=== PATIENT | female | born 1985 | race African-American/Black ===

== ENCOUNTER 2016-11-30 07:34 | Emergency (ER) | payer OTHER ==
[2016-11-30 07:41] VITALS: BP 117/76; PULSE 82; TEMP 98.2; BMI 29.2
--- NOTE | 2016-11-30 08:45 | PDOC ---
History of Present Illness - General Chief Complaint: Cold Symptoms Stated Complaint: DIFFICULTY BREATHING Time Seen by Provider: 11/30/16 08:04 - History of Present Illness Initial Comments: 11/30/16 08:45 CHIEF COMPLAINT: sore throat HISTORY OF PRESENT ILLNESS: 31 yo F with recurrent strep infections and asthma presents to [facility] today with sore throat x 2-3 days with low grade fever yesterday. 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 No recent travel or sick contacts. PAST MEDICAL HISTORY: Denies past medical history FAMILY HISTORY: Denies SOCIAL HISTORY: Occupation: ENT nurse. Denies tobacco, alcohol, illicit drug use. SURGICAL HISTORY: Denies ALLERGIES: No known drug allergies REVIEW OF SYSTEMS General/Constitutional: "Low grade fever". Denies weakness, weight change. HEENT: Sore throat. Denies change in vision. Denies ear pain or discharge. Denies sore throat. Cardiovascular: Denies chest pain or shortness of breath. Respiratory: Denies cough, wheezing, or hemoptysis. PHYSICAL EXAM General Appearance: Well-appearing, appropriately dressed. No apparent distress , no intoxication. HEENT: Swollen uvula and L tonsil, exudate to L tonsil. EOMI, PERRLA. No conjunctival pallor. No photophobia, scleral icterus. Respiratory/Chest: Lungs CTAB. Cardiovascular: RRR. S1, S2. Integumentary: Appropriate color, dry, warm. No cyanosis, erythema, jaundice or rash Past History - Past Medical History Allergies/Adverse Reactions: Allergies Allergy/AdvReac Type Severity Reaction Status Date / Time No Known Allergies Allergy Verified 11/30/16 07:37 Home Medications: Ambulatory Orders NK [No Known Home Medication] 11/30/16 Asthma: Yes Diabetes: No GI Disorders: No HTN: No Hypercholesterolemia: No Psychiatric Problems: Yes (anxiety) Suicide Attempt (Hx): No - Surgical History Abdominal Surgery: Yes - Reproductive History Cervical CA: No Dysfunctional Uterine Bleeding: No Ectopic : No Endometrial CA: No Polycystic Ovaries: No Tubal Ligation: No - Immunization History Td Vaccination: Yes Immunization Up to Date: Yes - Psycho/Social/Smoking Cessation Hx Anxiety: Yes Suicidal Ideation: No Smoking Status: No Smoking History: Never smoked Years of Tobacco Use: 0 Have you smoked in the past 12 months: No Number of Cigarettes Smoked Daily: 0 Cigars Per Day: 0 Information on smoking cessation initiated: No Hx Alcohol Use: No Drug/Substance Use Hx: No Substance Use Type: None Hx Substance Use Treatment: No *Physical Exam - Vital Signs Last Vital Signs Temp Pulse Resp BP Pulse Ox 98.2 F 82 18 117/76 100 11/30/16 07:38 11/30/16 07:38 11/30/16 07:38 11/30/16 07:38 11/30/16 07:38 Medical Decision Making - Medical Decision Making 11/30/16 08:52 31 yo F presents to [facility] with sore throat s/p recent mono infection. -rapid strep Strep A negative. Given recent infection with mononucleosis, will not to give penicillin antibiotics. Will give Decadron for swelling of the throat. Advised patient to follow up with ENT for further evaluation of recurrent strep infections and throat swelling. Advised patient of signs and symptoms for return to ER. Patient verbalized understanding agrees to plan. 11/30/16 09:04 *DC/Admit/Observation/Transfer Diagnosis at time of Disposition: Pharyngitis Qualifiers: Pharyngitis/tonsillitis etiology: unspecified etiology Qualified Code(s): J02.9 - Acute pharyngitis, unspecified - Discharge Dispostion Disposition: HOME Condition at time of disposition: Stable Admit: No - Referrals Referrals: Nikolai Schneider MD [Staff Physician] - - Patient Instructions Printed Discharge Instructions: DI for Pharyngitis/Tonsillopharyngitis -- Adult Additional Instructions: Please take Motrin as needed for pain and fever. I highly recommend following up with ENT to discuss recurrent strep infections and possible elective surgical removal of tonsils. If you experience any high fever, swelling of the throat, mouth, tongue, lips, or have any difficulty speaking or swallowing, please return to the ER immediately. - Post Discharge Activity Work/School Note: Back to Work
[2016-11-30] MEDS ORDERED: DEXAMETHASONE SOD PHOSPHATE 10 MG/1 ML VIAL ONE (08:55)
[2016-11-30] MEDS ORDERED: DEXAMETHASONE LIQUID 0.5 MG/5 ML 240 ML BULK BOTTLE PO ONE (09:03)
== END 2016-11-30 09:05 | disposition home or self-care (01) ==
LOC: JERFT 07:34 → JER 07:34 → JERFT 09:05
DX: J02.9 Acute pharyngitis, unspecified (principal); J45.909 Unspecified asthma, uncomplicated; F41.9 Anxiety disorder, unspecified
CPT/HCPCS: 87070; 87077; 87430; 99281-25

== ENCOUNTER 2017-04-10 19:27 | Emergency (ER) | payer OTHER ==
[2017-04-10 19:35] VITALS: BP 132/76; PULSE 75; TEMP 98.6; BMI 29.9
[2017-04-10] MEDS ORDERED: morphine CARPU-JECT 2 MG/1 ML DISP.SYRIN IVPUSH ONE (20:33)
[2017-04-10] MEDS ORDERED: ONDANSETRON 4 MG/2 ML VIAL IVPUSH ONE (20:33)
[2017-04-10] MEDS ORDERED: SODIUM CHLORIDE 1,000 ML IV STA (20:33)
[2017-04-10] MEDS ORDERED: ONDANSETRON 4 MG/2 ML VIAL ONE (20:58)
[2017-04-10] MEDS ORDERED: morphine CARPU-JECT 2 MG/1 ML DISP.SYRIN ONE (20:58)
[2017-04-10 21:07] LABS: BASOPHIL 0.7 % (0-2.0); EOSINOPHIL 2.7 % (0-4.5); MCH 25.4 pg (25.7-33.7); MCHC 32.4 g/dl (32.0-36.0); MEAN CELL VOLUME 78.4 fl (80-96); MEAN PLT VOLUME 8.9 fl (7.5-11.1); NEUTROPHILS 50.2 % (42.8-82.8); PLATELET COUNT 238 K/MM3 (134-434); RDW 14.4 % (11.6-15.6); WHITE BLOOD COUNT 6.9 K/mm3 (4.0-10.0)
[2017-04-10 21:29] LABS: ALBUMIN 3.6 g/dl (3.4-5.0); ALK PHOS 54 U/L (45-117); AMYLASE 96 U/L (25-115); ANION GAP 8 (8-16); BILIRUBIN,DIRECT 0.1 mg/dL (0.0-0.2); BILIRUBIN,TOTAL 0.4 mg/dL (0.2-1.0); CALCIUM 8.8 mg/dL (8.5-10.1); CO2 27 mmol/L (21-32); CREATININE 0.7 mg/dL (0.55-1.02); GLUCOSE,RANDOM 92 mg/dL (74-106); SGOT/AST 13 U/L (15-37); SGPT/ALT 17 U/L (12-78); TOT PROT 7.5 g/dl (6.4-8.2)
--- NOTE | 2017-04-10 21:50 | PDOC ---
"History of Present Illness - General Chief Complaint: Shortness of Breath Stated Complaint: S.O.B/ BACK PAIN Time Seen by Provider: 04/10/17 20:08 History Source: Patient Exam Limitations: No Limitations - History of Present Illness Travel History: No Initial Comments: 04/10/17 21:45 31yo Female patient with no significant past medical history presents to ED c/o Lt flank pain that radiated to LUQ with increased intensity in pain while taking deep breathe. Patient reports symptoms began 4 weeks ago. She was seen at evaluated by Dr. Salmon and WENDY Martínez at [facility]. She reports Ultrasound and labs down with no abnormality. Patient also reports being SOB on exertion. She states after eating lunch today, she experienced vomiting x 2. LNMP: Mar 30. Patient denies any other complaints at this time. Timing/Duration: reports: getting worse Quality: reports: moderate, sharpness Abdominal Pain Onset Location: reports: flank. denies: RUQ, LUQ, RLQ, LLQ, epigastric, periumbilical, suprapubic, generalized abdomen, unknown, other Pain Radiation: reports: LUQ Activities at Onset: reports: exertion, rest, no specific activity Treatment Prior to Arrive: improves with: analgesics. worse with: antacids, cold pack, heat, laxative, enema, other Aggravating Factors: worse with: None, Defecation, Eating, Emotional upset, Exertion, [place], Movement, Voiding, Change in position Alleviating Factors: worse with: None, Belching, Shallow Breathing, Defecation, Eating, Holding Breath, Passing Gas, Change in Position, Rest, Voiding, Vomiting Past History - Travel Traveled outside of the country in the last 30 days: No Close contact w/someone who was outside of country & ill: No - Past Medical History Allergies/Adverse Reactions: Allergies Allergy/AdvReac Type Severity Reaction Status Date / Time No Known Allergies Allergy Verified 04/10/17 19:35 Home Medications: Ambulatory Orders Famotidine [Pepcid] 20 mg PO BID #14 tablet 04/11/17 Ondansetron [Zofran Odt -] 4 mg SL Q6H PRN #20 od.tablet 04/11/17 Asthma: Yes Diabetes: No GI Disorders: No HTN: No Hypercholesterolemia: No Psychiatric Problems: Yes (anxiety) Suicide Attempt (Hx): No - Surgical History Abdominal Surgery: Yes - Reproductive History Cervical CA: No Dysfunctional Uterine Bleeding: No Ectopic : No Endometrial CA: No Polycystic Ovaries: No Tubal Ligation: No - Immunization History Td Vaccination: Yes Immunization Up to Date: Yes - Psycho/Social/Smoking Cessation Hx Anxiety: Yes Suicidal Ideation: No Smoking Status: No Smoking History: Never smoked Years of Tobacco Use: 0 Have you smoked in the past 12 months: No Number of Cigarettes Smoked Daily: 0 Cigars Per Day: 0 Information on smoking cessation initiated: No Hx Alcohol Use: No Drug/Substance Use Hx: No Substance Use Type: None Hx Substance Use Treatment: No Abd/GI Specific PMHX - Complaint Specific PMHX Colitis: No Diverticulitis: No Gall Bladder Disease: No GERD: No Hepatitis: No Irritable Bowel Synd (IBS): No Pancreatitis: No GI Ulcer Disease: No Review of Systems - Review of Systems Able to Perform ROS?: Yes Is the patient limited Kenyan proficient: No Constitutional: No: Chills, Fever, Weakness Respiratory: Yes: Shortness of Breath, SOB with Exertion. No: Cough, Orthopnea , SOB at Rest, Wheezing Cardiac (ROS): No: Chest Pain, Palpitations, Syncope, Chest Tightness ABD/GI: Yes: Nausea, Vomiting, Abdominal cramping. No: Abdominal Distended, Poor Appetite, Poor Fluid Intake, Rectal Bleeding : Yes: Flank Pain. No: Burning, Dysuria, Discharge, Hematuria Musculoskeletal: No: Back Pain Integumentary: No: Bruising, Erythema, Rash, Sweating Neurological: No: Headache, Numbness, Seizure, Tremors, Weakness, Ataxia, Dizziness All Other Systems: Reviewed and Negative *Physical Exam - Vital Signs Last Vital Signs Temp Pulse Resp BP Pulse Ox 98.6 F 75 17 132/76 100 04/10/17 19:31 04/10/17 19:31 04/10/17 19:31 04/10/17 19:31 04/10/17 19:31 - Physical Exam General Appearance: Yes: Nourished, Appropriately Dressed, Apparent Distress, Mild Distress. No: Moderate Distress, Severe Distress Neck: positive: Trachea midline, Normal Thyroid, Supple. negative: Lymphadenopathy (R), Lymphadenopathy (L), Tender lateral, Tender midline Respiratory/Chest: positive: Lungs Clear, Normal Breath Sounds. negative: Chest Tender, Respiratory Distress, Accessory Muscle Use, Labored Respiration, Rapid RR, Rhonchi, Stridor, Wheezing Cardiovascular: positive: Regular Rhythm, Regular Rate Gastrointestinal/Abdominal: positive: Normal Bowel Sounds, Tender, Soft, Rebound , Tenderness (Epigastric/LUQ). negative: Distended, Guarding Musculoskeletal: positive: Normal Inspection. negative: CVA Tenderness, CVA Tenderness (R), CVA Tenderness (L), Decreased Range of Motion, Vertebral Tenderness Extremity: positive: Normal Capillary Refill, Normal Inspection, Normal Range of Motion. negative: Pedal Edema, Swelling, Calf Tenderness, Erythema, Inflammation Integumentary: positive: Normal Color, Dry, Warm Neurologic: positive: payroll and benefits specialist II-XII NML intact, Fully Oriented, Alert, Normal Mood/ Affect, Normal Response, Motor Strength 12/05 ED Treatment Course - LABORATORY CBC & Chemistry Diagram: 04/10/17 20:50 04/10/17 20:50 - ADDITIONAL ORDERS Additional order review: Laboratory Results 04/10/17 04/10/17 20:50 20:50 Sodium 140 Potassium 3.8 Chloride 105 Carbon Dioxide 27 Anion Gap 8 BUN 11 D Creatinine 0.7 Random Glucose 92 Calcium 8.8 Total Bilirubin 0.4 Direct Bilirubin 0.1 AST 13 L ALT 17 Alkaline Phosphatase 54 Total Protein 7.5 Albumin 3.6 Total Amylase 96 Lipase 207 Serum , Qual Negative 04/10/17 20:50 RBC 5.04 MCV 78.4 L MCHC 32.4 RDW 14.4 MPV 8.9 Neutrophils % 50.2 D Lymphocytes % 39.2 D Monocytes % 7.2 Eosinophils % 2.7 D Basophils % 0.7 - RADIOLOGY Radiology Studies Ordered: Category Date Time Status ABDOMEN & PELVIS CT WITH CONTR [CT] Stat CT Scan 04/10/17 20:33 Ordered - Medications Given in the ED: ED Medications Discontinued Medications Generic Name Dose Route Start Last Admin Trade Name Freq PRN Reason Stop Dose Admin Sodium Chloride 1,000 mls @ 1,000 mls/hr 04/10/17 20:33 04/10/17 21:15 Normal Saline - IV 04/10/17 21:32 1,000 mls/hr ASDIR STA Administration Morphine Sulfate 2 mg 04/10/17 20:33 04/10/17 21:15 Morphine Injection - IVPUSH 04/10/17 20:34 2 mg ONCE ONE Administration Ondansetron HCl 4 mg 04/10/17 20:33 04/10/17 21:16 Zofran Injection IVPUSH 04/10/17 20:34 4 mg ONCE ONE Administration Medical Decision Making - Medical Decision Making 04/10/17 21:53 Confidential Drug Utilization Report Search Terms: Keyana Pollard, 1985 Search Date: 04/10/2017 09:53:06 PM The Drug Utilization Report below displays all of the controlled substance prescriptions, if any, that your patient has filled in the last twelve months. The information displayed on this report is compiled from pharmacy submissions to the Department, and accurately reflects the information as submitted by the pharmacies. This report was requested by: Jeff Pruett | Reference #: [id number] There are no results for the search terms that you entered. *DC/Admit/Observation/Transfer Diagnosis at time of Disposition: Abdominal pain Qualifiers: Abdominal location: left upper quadrant Qualified Code(s): R10.12 - Left upper quadrant pain - Discharge Dispostion Disposition: HOME Condition at time of disposition: Improved Admit: No - Prescriptions Prescriptions: Famotidine [Pepcid] 20 mg PO BID #14 tablet Ondansetron [Zofran Odt -] 4 mg SL Q6H PRN #20 od.tablet PRN Reason: nausea/vomiting - Referrals Referrals: STAFF,NOT ON [Primary Care Provider] - Sera Skelton MD [Staff Physician] - - Patient Instructions Printed Discharge Instructions: DI for Abdominal Pain-Adult Additional Instructions: Follow up with your primary care provider for further evaluation or possible referral. Also, call to schedule appointment with Dr. Skelton (Gastroenterology ) for further evaluation. Take medications as prescribed. Return if symptoms worsen or any concerns for further evaluation. Motrin or Tylenol for pain as needed. Print Language: HUNGARIAN - Post Discharge Activity Work/School Note: Back to Work"
--- NOTE | 2017-04-10 22:03 | PDOC ---
*Physical Exam - Vital Signs Last Vital Signs Temp Pulse Resp BP Pulse Ox 98.6 F 75 17 132/76 100 04/10/17 19:31 04/10/17 19:31 04/10/17 19:31 04/10/17 19:31 04/10/17 19:31 - Physical Exam Comments: 04/10/17 22:03 The patient was examined by [BRAYAN Pruett] under my direct supervision. I personally evaluated the patient. I concur with the above findings and the plan of care. ED Treatment Course - LABORATORY CBC & Chemistry Diagram: 04/10/17 20:50 04/10/17 20:50 - ADDITIONAL ORDERS Additional order review: Laboratory Results 04/10/17 04/10/17 20:50 20:50 Sodium 140 Potassium 3.8 Chloride 105 Carbon Dioxide 27 Anion Gap 8 BUN 11 D Creatinine 0.7 Random Glucose 92 Calcium 8.8 Total Bilirubin 0.4 Direct Bilirubin 0.1 AST 13 L ALT 17 Alkaline Phosphatase 54 Total Protein 7.5 Albumin 3.6 Total Amylase 96 Lipase 207 Serum , Qual Negative 04/10/17 20:50 RBC 5.04 MCV 78.4 L MCHC 32.4 RDW 14.4 MPV 8.9 Neutrophils % 50.2 D Lymphocytes % 39.2 D Monocytes % 7.2 Eosinophils % 2.7 D Basophils % 0.7 - Medications Given in the ED: ED Medications Discontinued Medications Generic Name Dose Route Start Last Admin Trade Name Freq PRN Reason Stop Dose Admin Sodium Chloride 1,000 mls @ 1,000 mls/hr 04/10/17 20:33 04/10/17 21:15 Normal Saline - IV 04/10/17 21:32 1,000 mls/hr ASDIR STA Administration Morphine Sulfate 2 mg 04/10/17 20:33 04/10/17 21:15 Morphine Injection - IVPUSH 04/10/17 20:34 2 mg ONCE ONE Administration Ondansetron HCl 4 mg 04/10/17 20:33 04/10/17 21:16 Zofran Injection IVPUSH 04/10/17 20:34 4 mg ONCE ONE Administration
[2017-04-10 23:22] LABS: URINE APPEARANCE CLEAR; URINE BILIRUBIN NEGATIVE (NEGATIVE); URINE BLOOD NEGATIVE (NEGATIVE); URINE COLOR YELLOW; URINE GLUCOSE (UA) NEGATIVE (NEGATIVE); URINE KETONE NEGATIVE (NEGATIVE); URINE LEUK ESTERASE NEGATIVE (NEGATIVE); URINE NITRITE NEGATIVE (NEGATIVE); URINE PROTEIN NEGATIVE (NEGATIVE); URINE UROBILINOGEN NEGATIVE mg/dL (0.2-1.0)
== END 2017-04-11 04:30 | disposition home or self-care (01) ==
LOC: SUPCPDRO 19:27 → JER 19:27
PROC: 3E033NZ Introduction of Analgesics, Hypnotics, Sedatives into Peripheral Vein, Percutaneous Approach (ICD-10-PCS; principal; 2017-04-10)
PROC: 3E033GC Introduction of Other Therapeutic Substance into Peripheral Vein, Percutaneous Approach (ICD-10-PCS; 2017-04-10)
DX: R10.13 Epigastric pain (principal); J45.909 Unspecified asthma, uncomplicated; F41.9 Anxiety disorder, unspecified
CPT/HCPCS: 36415; 71020-TC; 74177-TC; 80048; 80076; 81003; 82150; 83690; 84703; 85025; 99283-25

== ENCOUNTER 2019-08-29 12:23 | Emergency (ER) | payer OTHER ==
[2019-08-29 12:38] VITALS: BP 133/84; PULSE 112; TEMP 101.6; BMI 32.8
[2019-08-29] MEDS ORDERED: ACETAMINOPHEN 500 MG TABLET (FP) PO ONE (13:24)
[2019-08-29] MEDS ORDERED: ACETAMINOPHEN 500 MG TABLET (FP) ONE (13:38)
--- NOTE | 2019-08-29 14:13 | PDOC ---
History of Present Illness - General Chief Complaint: Sore Throat Stated Complaint: SORE THROAT / (+) FLU Time Seen by Provider: 08/29/19 13:16 - History of Present Illness Initial Comments: 08/29/19 14:12 33-year-old female flu positive out of the window for Tamiflu presents for evaluation of sore throat x2 days negative strep test at an urgent care Past History - Past Medical History Allergies/Adverse Reactions: Allergies Allergy/AdvReac Type Severity Reaction Status Date / Time No Known Allergies Allergy Verified 08/29/19 12:37 Home Medications: Ambulatory Orders Famotidine [Pepcid] 20 mg PO BID #14 tablet 04/11/17 Ondansetron [Zofran Odt -] 4 mg SL Q6H PRN #20 od.tablet 04/11/17 Asthma: Yes Diabetes: No GI Disorders: No HTN: No Hypercholesterolemia: No Psychiatric Problems: Yes (anxiety) - Surgical History Abdominal Surgery: Yes - Reproductive History Cervical CA: No Dysfunctional Uterine Bleeding: No Ectopic : No Endometrial CA: No Polycystic Ovaries: No Tubal Ligation: No - Immunization History Td Vaccination: Yes Immunization Up to Date: Yes - Psycho Social/Smoking Cessation Hx Smoking Status: No Smoking History: Never smoked Years of Tobacco Use: 0 Have you smoked in the past 12 months: No Number of Cigarettes Smoked Daily: 0 Cigars Per Day: 0 Information on smoking cessation initiated: No Hx Alcohol Use: No Drug/Substance Use Hx: No Substance Use Type: None Hx Substance Use Treatment: No Review of Systems - Review of Systems Constitutional: Yes: Chills, Fever, Malaise, Night Sweats HEENTM: Yes: Nose Congestion, Throat Swelling, Difficulty Swallowing. No: Mouth Swelling Respiratory: Yes: Cough *Physical Exam - Vital Signs Last Vital Signs Temp Pulse Resp BP Pulse Ox 101.6 F H 112 H 16 133/84 100 08/29/19 12:34 08/29/19 12:34 08/29/19 12:34 08/29/19 12:34 08/29/19 12:34 - Physical Exam 08/29/19 14:12 My strep 08/29/19 14:12 HEAD: NC/AT EYES: Conjuntiva clear Ears: Canals and TM's normal NOSE: No d/c THROAT: Moist mucous membrances, oral pharanx erythemic with exudate, uvula midline NECK: Supple without adenopathy CARDIAC: S1 S2 LUNGS: CTA Full and Equal breath sounds ABDOMEN: Soft NT ND MS: Full ROM in all joints without edema NEUROLOGIC: No gross sensory or motor deficits, NVID SKIN: Normal color and temperature no lesions or rashes ED Treatment Course - Medications Given in the ED: ED Medications Discontinued Medications Generic Name Dose Route Start Last Admin Trade Name Audi PRN Reason Stop Dose Admin Acetaminophen 1,000 mg 08/29/19 13:24 08/29/19 13:42 Tylenol - PO 08/29/19 13:25 1,000 mg ONCE ONE Administration Medical Decision Making - Medical Decision Making 08/29/19 14:12 Negative strep test x2 culture sent supportive care for viral pharyngitis and upper respiratory tract infection Discharge - Discharge Information Problems reviewed: Yes Clinical Impression/Diagnosis: Sore throat, Influenza Condition: Stable Disposition: HOME - Admission No - Follow up/Referral Referrals: Andrews Rouse [Primary Care Provider] - - Patient Discharge Instructions Additional Instructions: Your rapid strep test today was negative. A culture was sent should you require antibiotics we will call you if your strep test is positive and you are still symptomatic you may require treatment. However your strep test for rapid strep group A is negative. Tylenol and Motrin for pain warm salt water gargles 5-6 times a day for throat pain and return to the emergency room should symptoms worsen. Without fail follow-up with your primary care physician in 1 to 2 days for further evaluation and treatment options. - Post Discharge Activity
== END 2019-08-29 14:17 | disposition home or self-care (01) ==
LOC: JERFT 12:23
DX: J02.9 Acute pharyngitis, unspecified (principal); J45.909 Unspecified asthma, uncomplicated; F41.9 Anxiety disorder, unspecified
CPT/HCPCS: 87070; 87880; 99281-25

== ENCOUNTER 2020-08-20 10:07 | Emergency (ER) | payer OTHER ==
[2020-08-20 10:25] VITALS: BP 137/70; PULSE 69; TEMP 98.6; BMI 22.3
== END 2020-08-20 11:23 | disposition home or self-care (01) ==
LOC: JER 10:07
DX: B34.9 Viral infection, unspecified (principal); Z11.52 Encounter for screening for COVID-19
CPT/HCPCS: 71046-TC-FY; 99284-25; C9803; U0003

== ENCOUNTER 2020-09-24 10:30 | Emergency (ER) | payer OTHER ==
[2020-09-24 10:51] VITALS: TEMP 98.1; BMI 30.9
[2020-09-24 12:44] LABS: BASO % 0.7 % (0-2.0); EOS % 1.5 % (0-4.5); HEMATOCRIT 36.6 % (32.4-45.2); LYMPH % 44.3 % (8-40); MCH 24.5 pg (25.7-33.7); MCHC 32.8 g/dl (32.0-36.0); MEAN CELL VOLUME 74.8 fl (80-96); MEAN PLT VOLUME 9.2 fl (7.5-11.1); MONO % 9.9 % (3.8-10.2); NEUT % 43.6 % (42.8-82.8); PLATELET COUNT 245 K/MM3 (134-434); RBC 4.89 M/mm3 (3.60-5.2); RDW 14.7 % (11.6-15.6); WHITE BLOOD COUNT 6.8 K/mm3 (4.0-10.0)
[2020-09-24 13:04] LABS: INR 0.93 (0.83-1.09); PROTHROMBIN TIME (PATIENT) 11.5 SEC (9.7-13.0)
[2020-09-24 13:13] LABS: CALCIUM 9.5 mg/dL (8.5-10.1)
[2020-09-24 13:14] LABS: MAGNESIUM 1.8 mg/dL (1.8-2.4)
[2020-09-24 13:17] LABS: CREATININE 0.6 mg/dL (0.55-1.3)
[2020-09-24 13:19] LABS: BILIRUBIN,TOTAL 0.5 mg/dL (0.2-1); TOT PROT 7.6 g/dl (6.4-8.2)
[2020-09-24 13:34] VITALS: BP 144/78; PULSE 91
== END 2020-09-24 14:40 | disposition home or self-care (01) ==
LOC: JER 10:30
DX: E03.9 Hypothyroidism, unspecified (principal)
CPT/HCPCS: 36415; 80053; 82550; 82553; 83735; 84439; 84443; 84481; 84484; 85025; 85610; 93005; 93010; 99285-25